=== PATIENT | male | born 1995 | race Caucasian/White ===

== ENCOUNTER 2016-09-05 23:05 | Emergency (ER) | payer OTHER ==
[~2016-09-05] VITALS: Ht 182.9 cm; Wt 86.2 kg
--- NOTE | 2016-09-05 23:50 | NUR ---
BB SELF; POSSIBLE SEIZURE ACTIVITY @2200 IN CAR, PT AOX4 RR EVEN AND UNLABORED. NO SOB NOTED. NAD NOTED. NO NVD AT THIS TIME. PT NOT DIAPHORETIC. PT PLACED ON MONITOR WAITING FOR MD CORONADO. PT PLACED ON SEIZURE PRECAUTION.
--- NOTE | 2016-09-06 00:08 | NUR ---
DR. MEYER AT BEDSIDE FOR EVAL.
[2016-09-06] MEDS ORDERED: LORAZEPAM 1 MG TABLET PO ONE (00:30)
[2016-09-06] MEDS ORDERED: LORAZEPAM 1 MG TABLET ONE (00:33)
[2016-09-06 00:42] LABS: PHENCYCLIDINE SCREEN,URINE NEGATIVE (NEGATIVE)
[2016-09-06 00:43] LABS: CANNABINOID, URINE POSITIVE (NEGATIVE)
[2016-09-06 00:46] LABS: CALCIUM, SERUM 9.2 mg/dL (8.5-10.1); CARBON DIOXIDE 29 mmol/L (21-32); CHLORIDE 103 mmol/L (98-107); CREATININE 1.2 mg/dL (0.6-1.3); GFR 76 mL/min (>60); GLUCOSE 112 mg/dL (74-106); SODIUM SERUM 141 mmol/L (136-145); UREA NITROGEN, BLOOD 12 mg/dL (7-18)
[2016-09-06 00:48] LABS: ALCOHOL, BLOOD < 3 mg/dL (0-0)
--- NOTE | 2016-09-06 00:54 | NUR ---
Note kristynkerry in ED - 09/06/16 at 0106 by MELINA IV removed. Catheter intact and site benign. Pressure and 4x4 applied to site. No bleeding noted. Patient discharged to home in stable condition. Written and verbal after care instructions given. Patient refused to sign d/c paper work. ambulatory with a steady gait
[2016-09-06 01:10] VITALS: BP 130/82
--- NOTE | 2016-09-06 01:14 | NUR ---
Patient discharged to home in stable condition. Written and verbal after care instructions given. Patient verbalizes understanding of instruction. ambulatory with a steady gait. pt instructed not to drive. pt verbalize understanding.
== END 2016-09-06 01:16 | disposition home or self-care (01) ==
LOC: ER 23:13
DX: G40.909 Epilepsy, unspecified, not intractable, without status epilepticus (principal)
CPT/HCPCS: 36415; 80048; 80305; 99284; A4606; G0480; Z7610